=== PATIENT | male | born 1995 | race Caucasian/White ===

== ENCOUNTER 2017-12-02 19:33 | Emergency (ER) | payer MEDICAID ==
[~2017-12-02] VITALS: Ht 170.2 cm; Wt 81.0 kg
[2017-12-02] MEDS ORDERED: HYDROCODONE/APAP 7.5/325MG 1 TAB TABLET PO ONE (20:30)
[2017-12-02] MEDS ORDERED: LORAZEPAM 1MG TABLET PO ONE (20:30)
[2017-12-02] MEDS ORDERED: LIDOCAINE HCL 1% 20ML VIAL (Pyxis) INJ MC ONE (21:30)
[2017-12-02] MEDS ORDERED: LIDOCAINE HCL/PF 1% 10 MG/ML 30ML VIAL IJ NR (21:39)
[2017-12-02 22:15] VITALS: BP 128/82
== END 2017-12-02 22:30 | disposition home or self-care (01) ==
LOC: ER 20:02
DX: S63.259A Unspecified dislocation of unspecified finger, initial encounter (principal); Y93.66 Activity, soccer
CPT/HCPCS: 26770; 73130; 99284; J3490; Z7610